=== PATIENT | female | born 1995 | race Caucasian/White ===

== ENCOUNTER 2016-08-08 21:22 | Emergency (ER) | payer OTHER ==
[~2016-08-08] VITALS: Ht 149.9 cm; Wt 72.6 kg
[2016-08-08 21:27] VITALS: BP 132/80
[2016-08-08] MEDS ORDERED: ORTHO TRI-CYCL1 EAC1 PO (21:51)
[2016-08-08] MEDS ORDERED: VICKS DAYQUIL236 ML PO (21:53)
--- NOTE | 2016-08-08 22:07 | ED INFLUENZA/URI COMPLAINT ---
History of Present Illness General Chief Complaint: General Adult Stated Complaint: "I HAVE THE FLU" Source: patient, old records Exam Limitations: no limitations Vital Signs & Intake/Output Vital Signs & Intake/Output Vital Signs Date Time Temp Pulse Resp B/P Pulse O2 O2 Flow FiO2 Ox Delivery Rate 08/08 2157 Room Air 08/08 2126 97.2 105 18 132/80 99 Room Air Allergies Coded Allergies: Penicillins (ITCHY AND HIVES 08/08/16) Reconcile Medications D-Methorphan/PE/Acetaminophen (Vicks Dayquil Liquid) 10 MG-5 MG-325 MG/15 ML LIQUID 2 CAP PO PRN FLU LIKE SYMPTOMS (Reported) Norgestimate-Ethinyl Estradiol (Ortho Tri-Cyclen Lo Tablet) [id number] LO TABLET 1 TAB PO DAILY CONTROL (Reported) Oseltamivir Phosphate (Tamiflu) 75 MG CAPSULE 1 CAP PO BID viral Triage Note: PT TO ED "FOR A PRESCRIPTION OF TAMIFLU MY WHOLE HOUSE WAS SICK SO I BET I HAVE IT NOW" PT REPORTING COUGH SINCE YESTERDAY. LAUGHING AND INTERACTING ON CELL PHONE IN TRIAGE. Triage Nurses Notes Reviewed? yes Onset: Abrupt Duration: day(s): (1), constant Timing: recent history Severity: mild, moderate Severity Numbers: 5 Prior Episodes/Possible Cause: occassional episodes No Modifying Factors: none Associated Symptoms: cough, muscle aches, nasal congestion, nasal drainage : No Patient currently breastfeeds: No HPI: 20-year-old with no medical history nonsmoker with multiple sick contacts at home with the flu presents emergency room complaining of congestion and rhinorrhea and generalized bodyaches chills malaise for the past 1 day number cough. She denies ear pain fevers no shortness of breath chest pain abdominal pain nausea vomiting or diarrhea. She is not taken anything for her symptoms are no modifying factors or associated symptoms otherwise. Multiple sick contacts at home taking Tamiflu currently requesting a prescription for the same (CHRISTEL FRIED) Past History Travel History Traveled to [place] past 21 day No Medical History Any Pertinent Medical History? 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 No (CHRISTEL FRIED) Review of Systems Review of Systems Constitutional: Reports: see HPI. All Other Systems: Reviewed and Negative Comments Review of systems: See HPI, All other systems negative. Constitutional, no chills no fever, malaise HEENT: No visual changes no sore throat congestion, no ear pain Cardiovascular: No chest pain , no palpitation Skin, no rashes, no change in skin Respiratory: No dyspnea cough no sputum no hemoptysis GI: No nausea no vomiting, no diarrhea, : No dysuria No hematuria, no frequency, Muscle skeletal: No joint pain, no back pain, no neck pain, Neurologic: No numbness no headache Psych: No stress Heme/endocrine: No bruising no bleeding Immunology: No lymphadenopathy (CHRISTEL FRIED) Physical Exam Physical Exam General Appearance: well developed/nourished, no apparent distress, alert, awake Ears, Nose, Throat: normal ENT inspection, moist mucous membrane, hearing grossly normal, Tympanic normal, pharynx normal Comments: Well-developed well-nourished patient in no apparent distress. Head/Face: Atraumatic, no maxillary/frontal sinus tenderness, no facial swelling Eyes: PERRL, EOMI, no conjunctival injection. No nystagmus Ear:External auditory canal and Tympanic membranes clear, no erythema, no FB. Nose: atraumatic.Normal inspection: No bleeding, no septal hematoma Throat: Moist mucous membranes.Pharynx normal. No pharyngeal erythema/exudate seen. No stridor/drooling or assymetry. No swelling or edema. Neck: Supple, no lymphadenopathy, FROM Back: FROM, Nontender Cardiovascular: Regular rate and rhythms no murmurs rubs or gallops, Respiratory: Chest nontender.There were no bony deformities, no asymmetry. No respiratory distress. Patient speaking in full complete sentences. Breath sounds clear to auscultation bilaterally: NO W/R/R Extremities: full range of motion Neuro: Alert and oriented x3 Skin: Warm & dry;No appreciable rash on exposed skin Psych: Mood affect normal, normal memory normal judgment. Core Measures Severe Sepsis Present: No Septic Shock Present: No (CHRISTEL FRIED) Progress Differential Diagnosis: influenza, otitis, pneumonia, pharyngitis, sinusitis Plan of Care: Orders Procedure Date/time Status RAPID VIRAL INFLUENZA A 08/08 2128 Complete Microbiology 08/08 2130 NASOPHARYN: Influenza Virus A & B Rapid Smear - COMP Prescription for Tamiflu providing given multiple sick contacts with the flu I discussed with her her flu swab results Tylenol Motrin as needed fluids close follow up with primary care she feels comfortable plan (CHRISTEL FRIED) Initial ED EKG: none (CHRISTEL FRIED) Departure Departure Time of Disposition: 2213 Disposition: HOME OR SELF CARE Condition: Stable Clinical Impression Primary Impression: Viral syndrome Referrals: PATIENT HAS NO PRIMARY CARE DR (PCP/Family) Additional Instructions: tylenol or motrin every 4-6 hours. tamiflu as directed. [facility]. drink plenty of fluids, follow up with your pmd, return with any concerns Departure Forms: Customer Survey General Discharge Information Prescriptions: Current Visit Scripts Oseltamivir Phosphate (Tamiflu) 1 CAP PO BID #10 CAP (CHRISTEL FRIED) PA/FACILITIES SUPERVISOR Co-Sign Statement Statement: ED Attending supervision documentation- [] I saw and evaluated the patient. I have also reviewed all the pertinent lab results and diagnostic results. I agree with the findings and the plan of care as documented in the PA's/FACILITIES SUPERVISOR's documentation. [x] I have reviewed the ED Record and agree with the PA's/FACILITIES SUPERVISOR's documentation. [] Additions or exceptions (if any) to the PAs/FACILITIES SUPERVISOR's note and plan are summarized below: [] (JEANNETTE DENNIS,BRIAN Ruth)
[2016-08-08] MEDS ORDERED: TAMIFLU75 M1 PO (22:15)
== END 2016-08-08 22:21 ==
LOC: ERH 21:22
DX: B34.9 Viral infection, unspecified (principal)
CPT/HCPCS: 87804; 87804-59

== ENCOUNTER → 2017-09-14 | Day surgery (SDC) | payer OTHER ==
[~2017-09-14] VITALS: Ht 149.9 cm; Wt 92.5 kg
[~2017-09-14] MED LIST: AZITHROMYCIN500 M3 PO; DOXYCYCLINE HY100 M2 PO; ORTHO TRI-CYCL1 EAC1 PO; TAMIFLU75 M1 PO; VICKS DAYQUIL236 ML PO
--- NOTE | 2017-09-22 12:23 | Operative Report ---
Operative/Inv Procedure Report Surgery Date: 09/14/17 Name of Procedure: Laparoscopy chromopertubation endometrial biopsy Pre-Operative Diagnosis: Pelvic pain irregular cycle Post-Operative Diagnosis: Same after meals left eye Estimated Blood Loss: 50ml to 100ml Surgeon/Continuous Process Tanner Rotary Drum: Sukhwinder DENNIS,Caroline Martinez Anesthesia: general endotracheal tube Operative/Procedure Note Note: Procedure note patient was taken to the operating room placed on position after adequate anesthesia patient placed in dorsal supine position the abdomen was prepped and draped so fashion the vagina from dorsal fashion Fischer was placed sterilely examination anesthesia performed CO2 tenaculum was in the Intralipid cervix Corley speculum inserted vagina patient tolerated this well at this point Pipelle was placed carefully into the uterus for an endometrial biopsy patient tolerated that well lysed surgeon regowned and gloved at the level of the umbilicus a stab incision was made to allow for the entry of Veress needle was insufflated possibly fully Z CO2 to liver edge dullness which point the Veress needle was removed the M a 10 mm trocar was inserted atraumatically on lysis sheath remained placed through that sheath laparoscope under direct visualization a 5 mm port was placed 2 fingerbreadths of symptoms pubis in midline patient tolerated that well dye was placed through the colon into the uterus the tube on the left originally did not have spillage increased fluid a day pictures were taken ovaries a consistent with PCL all instruments removed from the abdomen as well as maximal amount of fluid IV incision the umbilicus was oversewn for the fascia f with 0 suture the skin was reapproximated with 30 sutures Marcaine was injected underneath the skin sterile dressings were applied the patient was extubated after the Beauchamp cannula and on since removed from the vagina as well as the Fischer and she been returned to supine position with counts correct this is Caroline Pretty MD dictating
== END ==
LOC: STS 01:11
DX: R10.2 Pelvic and perineal pain (principal); N92.1 Excessive and frequent menstruation with irregular cycle; E66.9 Obesity, unspecified
CPT/HCPCS: 81025; 88305; J0131; J2250; J3490; Q9968

== ENCOUNTER 2017-11-20 16:02 | Emergency (ER) | payer OTHER ==
[~2017-11-20] VITALS: Ht 149.9 cm; Wt 92.1 kg
[~2017-11-20 16:02] MED LIST changes: -AZITHROMYCIN500 M3 PO
[2017-11-20 17:43] LABS: ABSOLUTE BASOPHIL COUNT 0 /CUMM (0.0-0.2); ABSOLUTE EOSINOPHIL COUNT 0.1 /CUMM (0.0-0.7); ABSOLUTE GRANULOCYTE CT 16.1 /CUMM (1.4-6.5); ABSOLUTE LYMPH COUNT 1.9 /CUMM (1.2-3.4); ABSOLUTE MONOCYTE COUNT 1.5 /CUMM (0.10-0.60); BASOPHIL % 0.1 % (0.0-2.0); EOSINOPHIL % 0.5 % (0-5); HEMATOCRIT 41.1 % (37-47); MEAN CORPUSCULAR HGB 29.5 PG (27.0-31.0); MEAN CORPUSCULAR HGB CONC 33.7 G/DL (33.0-37.0); MEAN CORPUSCULAR VOLUME 87.7 FL (81.0-99.0); MEAN PLATELET VOLUME 7.4 FL (7.4-10.4); PLATELET COUNT 367 /CUMM (130-400); RED BLOOD CELL CT 4.68 /CUMM (4.20-5.40); WHITE BLOOD CELL COUNT 19.6 /CUMM (4.8-10.8)
[2017-11-20] MEDS ORDERED: AZITHROMYCIN500 M3 PO (18:20)
--- NOTE | 2017-11-20 18:21 | ED GENERAL ADULT ---
History of Present Illness General Chief Complaint: Upper Respiratory Sx/Fever Stated Complaint: CHILLS,SWEATS,EARS AND THROAT HURT Source: patient Exam Limitations: no limitations Vital Signs & Intake/Output Vital Signs & Intake/Output Vital Signs Date Time Temp Pulse Resp B/P B/P Pulse O2 O2 Flow FiO2 Mean Ox Delivery Rate 11/20 1826 99 11/20 1617 98.5 119 18 139/82 98 Room Air Allergies Coded Allergies: Penicillins (ITCHY AND HIVES 09/13/17) Reconcile Medications Azithromycin 500 MG TABLET 1 TAB PO DAILY strep Doxycycline Hyclate 100 MG CAPSULE 1 CAP PO BID ABX (Reported) Triage Note: PT STATES SHE HAS EAR PAIN BODY ACHES WITH CHILLS. PT STATES THIS BEGAN MONDAY MORNING. Triage Nurses Notes Reviewed? yes Onset: Gradual Duration: day(s): Timing: constant : No Patient currently breastfeeds: No HPI: 22 y/o otherwise healthy female presenting with subjective fevers, fatigue, malaise, sore throat, and myalgias x2 days. Denies rhinorrhea, nasal congestion, cough, sputum, CP, SOB, abd pain, NVD, dysuria, insect bites, rashes. No sick contacts or recent travel. (Suzette Austin) Past History Travel History Traveled to [place] past 21 day No Medical History Any Pertinent Medical History? 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 No (Suzette Austin) Review of Systems Review of Systems Constitutional: Reports: see HPI. EENTM: Reports: see HPI. Respiratory: Reports: no symptoms. Cardiovascular: Reports: no symptoms. GI: Reports: no symptoms. Genitourinary: Reports: no symptoms. Musculoskeletal: Reports: see HPI. Skin: Reports: no symptoms. Neurological/Psychological: Reports: no symptoms. Hematologic/Endocrine: Reports: no symptoms. Immunologic/Allergic: Reports: no symptoms. (Suzette Austin) Physical Exam Physical Exam General Appearance: well developed/nourished, no apparent distress, alert, awake , comfortable Head: atraumatic, normal appearance Eyes: Bilateral: normal appearance. Ears, Nose, Throat: OP has diffuse erythema, no exudate, no tonsillar enlargemen. TM's with good light reflex. Nose is unremarkable Neck: normal inspection, +anterior cervical LAD Respiratory: normal breath sounds, lungs clear Cardiovascular: regular rate/rhythm Gastrointestinal: soft, non-tender Back: normal inspection Extremities: normal inspection Neurologic/Psych: awake, alert, oriented x 3, normal gait, normal mood/affect Skin: intact, normal color, warm/dry, no rashes Core Measures ACS in differential dx? No CVA/TIA Diagnosis: No Sepsis Present: No Sepsis Focused Exam Completed? No (Jeferson DHALIWAL,Suzette) Progress Differential Diagnoses I considered the following diagnoses in my evaluation of the patient: [strep vs PNA vs UTI vs viral syndrome vs lyme vs other tick borne illness] Plan of Care: Orders Procedure Date/time Status THROAT CULTURE W/QUICK STREP 11/20 1713 Complete LYME TITRE 11/20 1713 Active CBC WITHOUT DIFFERENTIAL 11/20 1713 Active BASIC METABOLIC PANEL 11/20 1713 Complete Laboratory Tests 11/20/17 1730: Anion Gap 13, Estimated GFR > 60, BUN/Creatinine Ratio 11.7, Glucose 115 H, Calcium 9.2, CBC w Diff MAN DIFF ORDERED, RBC 4.68, MCV 87.7, MCH 29.5, MCHC 33.7, RDW 13.0, MPV 7.4, Gran % 82.0 H, Lymphocytes % 9.9 L, Monocytes % 7.5, Eosinophils % 0.5, Basophils % 0.1, Absolute Granulocytes 16.1 H, Segmented Neutrophils Pending, Absolute Lymphocytes 1.9, Absolute Monocytes 1.5 H, Absolute Eosinophils 0.1, Absolute Basophils 0, Lyme Disease Antibody Pending 11/20/171713: Urine Test Cancelled Labs remarkable for leukocytosis to 19, rapid strep positive. Given toradol and solumedrol for sore throat. Rx azithromycin (PCN allergy). Counseled on supportive care and strict return precautions. Initial ED EKG: none (Jeferson DHALIWAL,Suzette) Departure Departure Disposition: HOME OR SELF CARE Condition: Stable Clinical Impression Primary Impression: Strep pharyngitis Referrals: Glendy DENNIS,Parvez Drake (PCP/Family) Additional Instructions: Take azithromycin as prescribed. Follow up with your primary care provider for re-evaluation. Return to the emergency department for any new or worsening symptoms. Departure Forms: Customer Survey General Discharge Information Prescriptions: Current Visit Scripts Azithromycin 1 TAB PO DAILY #7 TAB (Suzette Austin) PA/CRITICAL POWER INSTALL TECHNICIAN Co-Sign Statement Statement: ED Attending supervision documentation- I saw and evaluated the patient. I have also reviewed all the pertinent lab results and diagnostic results. I agree with the findings and the plan of care as documented in the PA's/CRITICAL POWER INSTALL TECHNICIAN's documentation. x I have reviewed the ED Record and agree with the PA's/CRITICAL POWER INSTALL TECHNICIAN's documentation. [] Additions or exceptions (if any) to the PAs/CRITICAL POWER INSTALL TECHNICIAN's note and plan are summarized below: [] (Bassam DENNIS,Nabor) Critical Care Note Critical Care Note Critical Care Time: non-applicable (Suzette Austin)
[2017-11-20 18:34] VITALS: BP 124/82
== END 2017-11-20 18:35 ==
LOC: ERH 16:02
PROVIDERS: Physician Assistant
DX: J02.0 Streptococcal pharyngitis (principal)
CPT/HCPCS: 86618; 81025; 96374; 96375; J0456; J1885; J2930